=== PATIENT | female | born 1990 | race Caucasian/White ===

== ENCOUNTER 2016-05-24 19:07 | Emergency (ER) | payer OTHER ==
[~2016-05-24] VITALS: Ht 162.6 cm; Wt 100.0 kg
[~2016-05-24 19:07] MED LIST: Albuterol inhaler; PREN1TAB47 PO
[2016-05-24 19:10] VITALS: BP 122/87; PULSE 85; RESP 16; O2SAT 100
[2016-05-25] MEDS ORDERED: MELO-253 PO (17:52)
== END 2016-05-24 20:35 | disposition left against medical advice (07) ==
LOC: SED 19:07
DX: R22.1 Localized swelling, mass and lump, neck (principal); Z53.21 Procedure and treatment not carried out due to patient leaving prior to being seen by health care provider

== ENCOUNTER 2016-05-25 15:00 | Emergency (ER) | payer OTHER ==
[~2016-05-25] VITALS: Ht 162.6 cm; Wt 100.0 kg
[2016-05-25 15:21] VITALS: BP 122/80; PULSE 83; RESP 16; O2SAT 99
--- NOTE | 2016-05-25 16:01 | ED.REPORT ---
HPI-Dental/Mouth Prob Date of Service May 25, 2016 ED Provider: Juancho Dixon MD Pt is a 26 y/o female w/ a hx of current every day smoking presenting to the ED c/o worsening lower left sided dental pain and left sided facial swelling onset 3 days ago. The patient has been seen for this previously and has been seen by a dentist before and is usually given antibiotics. She was given prescriptions by a dental provider 5 days ago. Rx's include clindamycin which the pharmacy says that she filled it today. She was also given a chlorhexidine rinse and 10 Vicodin. Her pain is exacerbated with speaking or chewing. Pt denies rash, fever , chills, vomiting, trouble breathing or swallowing. Her next dental appointment is in June. She came in yesterday and waited for 3 hours and eventually left without being seen. Nursing Notes Stated Complaint: TOOTH PAIN, SWOLLEN Chief Complaint: General Complaint Nursing Notes Reviewed: Yes Allergies: Coded Allergies: No Known Allergies (Verified , 05/24/16) Uncoded Allergies: No Known Allergies (Allergy, Unknown, 05/23/03) Scheduled ([Albuterol inhaler]) 2 PUFFS PRN Meloxicam (Meloxicam) 15 Mg Tablet 15 MG PO DAILY Vit/Fe Fumarate/Fa-Expunged Drug, Do (-Expunged Drug, Do Not Renew!) 1 Tab Tablet 1 TAB PO DAILY General Time Seen by MD: 16:00 Chief Complaint Tooth pain Hx Obtained From: Patient Arrived By: Walk-in Onset Occurred: 3 days ago Symptom Duration: Since onset Quality: Painful Severity: Current: Moderate Severity: Maximum: Moderate Exacerbated by: Chewing, Speaking Recent Healthcare: Previous diagnosis Similar Sx Previous: Yes Past Medical History Past Medical History Multiple episodes of dental pain Asthma as a child Past Surgical History father- diabetes mellitus Smoking History Current Every Day Smoker Social History Alcohol Use: Denies alcohol use Drug Use: Denies drug use Ambulatory Status Independent Review of Systems Review of Systems Note: + facial swelling Constitutional: Denies: Chills, Fever Ears / Nose / Throat: Reports: Toothache Respiratory: Denies: Shortness of breath GI: Denies: Dysphagia, Vomiting Complete sys rev & neg: except as marked. Skin: Denies Rash Physical Exam Initial Vital Signs Vital Signs (First) Date Time Temp Pulse Resp B/P Pulse Ox O2 Delivery O2 Flow Rate FiO2 2/7/17 15:21 36.3 83 16 122/80 99 Room Air Initial VS: Reviewed, Vital signs normal Head / Eyes: Atraumatic, Normocephalic, PERRL Respiratory: No respiratory distress Cardiovascular: Intact distal pulses Abdomen / GI: No distention Extremities: Vascular intact, Neuro intact, No swelling, No tenderness Skin: Warm, Dry, No cyanosis Neurologic: Alert, Oriented, Nonfocal Psychiatric: Mood/affect normal, Behavior normal, Normal thought content ENT: Atraumatic, Airway patent Dental impaction of tooth #17 No abscess seen on ultrasound No tap tenderness on tooth 17, 18, 19 Neck: Atraumatic, Supple, No meningismus, Full range of motion General/Constitutional: Awake, Alert, No acute distress, Well appearing, Cooperative, Not toxic appearing Interpretation & Diagnostics Interpretation & Diagnostics: FAST US: No abscess visualized Re-Eval/Medical Decision Source of Hx: Old records Re-Evaluation/Progress : Time of Eval: 17:03 Re-Evaluation/Progress Note: Pt rechecked. The patient is denying a dental block and a shot of toradol at this time. Informed pt of plan for treatment. Pt understands and agrees with plan for treatment. F/U instructions and RTER warnings given. All questions addressed. Counseled Regarding: Diagnosis, Need for follow-up, When/why to return to ED Discharge & Departure Primary Impression: Impacted tooth Disposition: Home Discharge Condition All VS Reviewed: Yes Condition: Stable Additional Instructions: Your physical exam is consistent with a dental impaction. There was no signs of dental abscess. The most important thing for you to do at this point is see a dentist to have the tooth extracted. Take the full course of antibiotics previously prescribed to you. Using meloxicam instead of ibuprofen. Follow-up with dental referrals as soon as possible. Return to the emergency department if you develop a high fever, trouble breathing or swallowing, increased facial swelling, or for other concerning signs or symptoms. Referrals: Gustavo Rosa DO (PCP) [facility] Portions of this note were transcribed by Max Segovia. I, Dr. Dixon personally performed the history, physical exam and medical decision-making; I reviewed and confirmed the accuracy of the information in the transcribed note. Signed by Samanta Grimm, 05/25/16 - 1700 copies to: Gustavo Rosa DO Brownell, Kirk H MD May 25, 2016 16:01 MAX SEGOVIA May 25, 2016 16:23
[2016-05-25] MEDS ORDERED: MELO-253 PO (17:52)
== END 2016-05-25 17:50 | disposition home or self-care (01) ==
LOC: SED 15:00
DX: K01.1 Impacted teeth (principal); R22.0 Localized swelling, mass and lump, head; F17.200 Nicotine dependence, unspecified, uncomplicated; J45.909 Unspecified asthma, uncomplicated